=== PATIENT | male | born 1960 | race African-American/Black ===

== ENCOUNTER 2024-04-13 04:21 | Day surgery (SDC) | payer OTHER ==
[2024-04-10 12:39] VITALS: BMI 30.7
[2024-04-13] MEDS ORDERED: MIDAZOLAM HCL 2 MG/2 ML SINGLE DOSE VIAL ONE (14:27)
[2024-04-13] MEDS ORDERED: PROPOFOL 20 ML ONE (14:27)
[2024-04-13] MEDS: ceFAZolin 2 GRAM PREMIX BAG IVPB ONE (14:37)
[2024-04-13 15:51] VITALS: TEMP 97.6
[2024-04-13] MEDS ORDERED: ONDANSETRON 4 MG/2 ML VIAL IVPUSH PRN (16:26)
[2024-04-13] MEDS ORDERED: LACTATED RINGERS SOLUTION 1,000 ML IV SCH (16:30)
[2024-04-13 17:22] VITALS: RESP 16
[2024-04-13 18:07] VITALS: BP 140/70; PULSE 70
== END 2024-04-13 18:14 | disposition home or self-care (01) ==
LOC: JASU-SURG 04:21
PROVIDERS: ATTEND Urology
PROC: 0VT08ZZ Resection of Prostate, Via Natural or Artificial Opening Endoscopic (ICD-10-PCS; principal; 2024-04-13 14:30)
DX: C61 Malignant neoplasm of prostate (principal); R33.9 Retention of urine, unspecified
CPT/HCPCS: 82962; 88305-TC; 88342-TC; 94760